=== PATIENT | female | born 1945 | race Caucasian/White ===

== ENCOUNTER 2022-04-16 06:41 | Observation (INO) ==
--- NOTE | 2022-04-06 11:30 | Anesthesiology Consultation ---
Date of Service April 06, 2022 Assessment & Plan (1) Encounter for pre-operative examination: Chart Review Chart Review: Acceptable Risk for Surgery and Patient NOT seen in Pre Admission Testing -COVID screening: Per PAT nursing assessment on 04/06/22. No known COVID-19 positive contacts or current COVID-19 related symptoms. Travel screen negative. Patient is NOT vaccinated for Covid. At surgeon discretion if preop Covid testing being done. History Surgery Operation Date: 04/16/22 07:15 Proposed Procedures p Left Breast Masectomy with Left [place] Acillary Lymph Node Biopsy - Bulmaro Severino MD Height/Weight Height: 5 ft 7.5 in Weight: 58.967 kg Allergies Allergy/AdvReac Type Severity Reaction Status Date / Time Sulfa (Sulfonamide Allergy Mild Rash to Verified 04/06/22 09:50 Antibiotics) Lower Extremities Medications Home Medications Medication Instructions Recorded Confirmed Last Taken acetaminophen 500 mg tablet 500 mg PO Q6H PRN Pain 10/24/20 04/06/22 10/22/20 11:00 (Tylenol Extra Strength) calcium carbonate 600 mg calcium 600 mg PO QDD 10/24/20 04/06/22 10/23/20 (1,500 mg) tablet (Calcium) cinnamon bark 500 mg capsule 500 mg PO QDL 10/24/20 04/06/22 10/23/20 (Cinnamon) multivitamin 1 tab PO QAM 10/24/20 04/06/22 10/23/20 cholecalciferol (vitamin D3) 10 10 mcg PO QDD 04/06/22 04/06/22 Unknown mcg (400 unit) chewable tablet (Vitamin D3) citalopram 10 mg tablet 10 mg PO HS 04/06/22 04/06/22 Unknown Past Medical History Medical History Anxiety Arthritis Borderline high blood pressure Breast cancer left dx Jan 2022 Past Surgical History Surgical History History of breast biopsy left History of colonoscopy Social History Smoking Status: Never smoker Do You Dip or Chew Tobacco: No Hx Alcohol Use: No Hx Substance Use: No substance use type: does not use Testing Laboratory Results 03/30/22= WBC: 7.24 H/H: 13.6/42.0 PLATELETS: 220 SODIUM: 136 POTASSIUM: 4.5 CHLORIDE: 98 CO2: 25 BUN: 17 CREATININE: 0.8 GLUCOSE: 112 Electrocardiogram Date: 03/30/22 SR with PACs at 76bpm Otherwise normal EKG per cardio
[~2022-04-16 06:41] MED LIST: LR 15ML/HR IV SCH; ceFAZolin 2000MG 2,000 MG/15 ML SYR IV SCH
[2022-04-16] MEDS ORDERED: fentaNYL citrate 100 MCG/2 ML VIAL ONE ×2 (09:01→10:28)
[2022-04-16] MEDS ORDERED: PROPOFOL IV EMULSION 10 MG/ML 20 ML VIAL IV ONE ×2 (09:01→10:37)
[2022-04-16] MEDS ORDERED: ONDANSETRON INJ 2 MG/ML 2 ML VIAL ONE ×2 (09:01→10:37)
[2022-04-16] MEDS ORDERED: MIDAZOLAM HCL 1 MG/ML 2ML VIAL ONE (09:01)
[2022-04-16] MEDS ORDERED: DEXAMETHASONE SOD INJ 4 MG/ML VIAL ONE (09:01)
--- NOTE | 2022-04-16 09:22 | History & Physical Bridge Note ---
Date of Service April 16, 2022 History & Physical Bridge Note I have examined the patient, reviewed the History & Physical and in the interval since the performance of the History & Physical I have noted the following changes of clinical significance: no changes noted
[2022-04-16] MEDS ORDERED: BUPIVACAINE LIPOSOME 1.3% 266 MG/20 ML VIAL ONE (09:30)
[2022-04-16] MEDS ORDERED: BUPIVACAINE/EPINEPHRINE 0.5% MPF 1:200,000 30 ML VIAL ONE (09:31)
[2022-04-16] MEDS ORDERED: METHYLENE BLUE 0.5% 10 ML VIAL ONE ×2 (09:31→09:32)
[2022-04-16] MEDS ORDERED: KETOROLAC 30 MG/ML VIAL IV PRN (09:34)
[2022-04-16] MEDS ORDERED: PROMETHAZINE HCL 6.25 MG in SODIUM CHLORIDE 0.9% 50 ML IV PRN (09:34)
[2022-04-16] MEDS ORDERED: fentaNYL citrate 100 MCG/2 ML VIAL IV PRN (09:34)
[2022-04-16] MEDS ORDERED: ATROPINE SULFATE 0.1 MG/ML 10ML SYR IV PRN (09:34)
[2022-04-16] MEDS ORDERED: ONDANSETRON INJ 2 MG/ML 2 ML VIAL IV PRN ×2 (09:34→13:29)
[2022-04-16] MEDS ORDERED: LIDOCAINE 2% MPF LOCAL 5 ML VIAL INFIL ONE (09:56)
[2022-04-16] MEDS ORDERED: PHENYLEPHRINE 100MCG/ML 5ML SYR ONE (09:56)
[2022-04-16] MEDS ORDERED: ePHEDrine sulfate 50 MG/ML SYR ONE (10:13)
--- NOTE | 2022-04-16 10:21 | Nuclear Medicine Report ---
LYMPHOSCINTIGRAPHY CLINICAL HISTORY: Left breast cancer. PROCEDURE: Using standard sterile technique, 4 intradermal and one deep injection of 501.27 uCi of Ly mphoseek was placed in the left breast. The patient tolerated the procedure well. There were no immed iate complications. The patient was subsequently transported to the surgical suite. No imaging was ob tained at the referring physician's request. IMPRESSION: Injection of Lymphoseek in the left breast. ACT 112: Negative or not required by law. Electronically signed by: Jose Weston M.D. 04/16/2022 10:19 AM
[2022-04-16] MEDS ORDERED: KETOROLAC 30 MG/ML VIAL ONE (11:08)
--- NOTE | 2022-04-16 11:54 | Post Operative Brief Note ---
Immediate Post Op Note v1 Date of Surgery April 16, 2022 Pre & Post Diagnosis Operation Date: 04/16/22 09:45 Pre-Op Diagnosis: Infiltrating Lobular Carcinoma in Left Breast Post-Op Diagnosis: Infiltrating Lobular Carcinoma in Left Breast I identified the patient and participated in the time-out.: Yes Procedure Operation Date: 04/16/22 09:45 Actual Procedures p Left Breast Mastectomy with Left [place] Axillary Lymph Node Biopsy(Left) - Bulmaro Severino MD Surgeon Bulmaro Severino MD Poke In GABE Sultana assisted with tissue retraction, camera op, closure Estimated Blood Loss 10 Findings Consistent with Post-Op Diagnosis Drains Francesco-Abarca Drain
--- NOTE | 2022-04-16 11:59 | Operative Report ---
Post Operative Report Pre & Post Diagnosis Operation Date: 04/16/22 09:45 Pre-Op Diagnosis: Infiltrating Lobular Carcinoma in Left Breast Post-Op Diagnosis: Infiltrating Lobular Carcinoma in Left Breast I identified the patient and participated in the time-out.: Yes Procedure Operation Date: 04/16/22 09:45 Actual Procedures p Left Breast Mastectomy with Left [place] Axillary Lymph Node Biopsy(Left) - Bulmaro Severino MD Surgeon Bulmaro Severino MD Hr Payroll Coordinator GABE Sultana assisted with tissue retraction, camera op, closure Estimated Blood Loss 10 Findings Consistent with Post-Op Diagnosis Specimens Left axillary sentinel lymph node #1, hot and blue, 916 count Left axillary sent lymph node #2, hot and blue, 680 count Left breast mastectomy specimen Drains 10 Armenian flat ENA Anesthesia Type General Complications No immediate complications Description of Procedure Patient was taken to the operating room, placed supine on the operating table. A timeout was performed, perioperative antibiotics were administered, SCD boots were placed. After adequate anesthesia and analgesia was obtained, the bilateral chest and left axilla was prepped and draped in the normal sterile fashion. Elliptical incision was drawn onto the left chest wall encompassing the nipple areolar complex. A mix of 20 cc of half percent Marcaine with epinephrine and 20 cc of Exparel was injected into and around the left breast. Incision was made with 15 blade scalpel and carried into the subcutaneous tissue. Flaps were raised. Using a traction countertraction technique, the underlying breast tissue was dissected free from the overlying skin and subcutaneous tissue. This was begun in the left lateral position, dissecting down towards the axilla. Once we reached the axilla, the axillary fat pad was identified and entered. Using the neoprobe, we were able to identify 2 sentinel lymph nodes, which were dissected free circumferentially and removed. The lymphatics were tied with 3-0 silk suture. Both sentinel lymph nodes were hot and blue. The count on sentinel node #1 was 916. The background radiation after both lymph nodes was removed was less than 10% of sentinel node #1. We then continued with the dissection of the breast. The limits of the dissection were the clavicle superiorly, the sternum medially, the rectus sheath inferiorly, and the axillary fat pad laterally. The breast was then removed from the underlying pectoralis major muscle, taking care to remove the fascia with it. It was marked with sutures and ink, and sent off field for specimen. Attention was turned to hemostasis. The wound was copiously irrigated and suctioned free, and hemostasis was attended to and was excellent. A 10 Armenian flat ENA drain was placed through separate stab incision and was secured with nylon suture. The subcutaneous tissue was closed with interrupted 3-0 Vicryl suture. The skin was closed with a running 4 Monocryl subcuticular stitch. Benzoin and Steri-Strips were applied. Dressings were applied. She tolerated the procedure without complication, was transferred in stable condition to the PACU. All instrument, needle, and sponge counts were correct at the end of the case. My mechanic's assistant was necessary throughout the procedure for tissue retraction, possible camera operation, and closure of the wounds. I understand that section 1842(b)(7)(D) of the Social Security act generally p rohibits Medicare physician fee schedule payment for the services of assistants at surgery in teaching hospitals when qualified residents are available to furnish such services. I certify that the services for which payment is claimed were medically necessary and that no qualified resident was available to perform the services. I further understand that these services are subject to postpayment review by the Medicare carrier. I attest to the content of the Intraoperative Record and any orders documented therein. Any exceptions are noted below.
--- NOTE | 2022-04-16 13:05 | Anesthesiology Progress Note ---
Date of Service April 16, 2022 Anesthesia Post Procedure Vital Signs Vital Signs: Temp Pulse Pulse Resp BP Pulse Ox O2 Del Method 04/16/22 13:00 84 12 125/62 93 Room Air 04/16/22 12:50 37.0 C 88 18 128/65 98 Room Air 04/16/22 12:40 89 17 135/66 97 Room Air 04/16/22 12:30 95 H 14 136/73 96 Oxymask 04/16/22 12:20 82 19 128/64 100 Oxymask 04/16/22 12:10 84 12 132/64 100 Oxymask 04/16/22 12:02 36.4 C L 90 16 145/68 H 100 Oxymask 04/16/22 06:54 36.8 C 98 H 20 160/89 H 97 Room Air O2 Flow Rate 04/16/22 13:00 04/16/22 12:50 04/16/22 12:40 04/16/22 12:30 4 04/16/22 12:20 4 04/16/22 12:10 9 04/16/22 12:02 9 04/16/22 06:54 Pain Intensity Left Breast: Pain Intensity: 3 Transfer of Care Handoff Completed per policy Notes Mental Status: alert / awake / arousable Patient Amnestic to Procedure: Yes Nausea / Vomiting: adequately controlled Pain: adequately controlled Airway Patency, RR, SpO2: stable & adequate BP & HR: stable & adequate Hydration State: stable & adequate Anesthetic Complications: no major complications apparent
[2022-04-16] MEDS ORDERED: LACTATED RINGER'S 1,000 ML IV SCH (13:29)
[2022-04-16] MEDS ORDERED: MoRPHine SULFATE 2 MG/ML CARP IV PRN (13:29)
[2022-04-16] MEDS ORDERED: ACETAMINOPHEN 325 MG TAB PO PRN (13:29)
[2022-04-16] MEDS ORDERED: diphenhydrAMINE Capsule 25 MG CAP PO PRN (13:29)
[2022-04-16] MEDS ORDERED: oxyCODONE/ACETAMINOPHEN 5mg/325mg TAB PO PRN (13:29)
[2022-04-16] MEDS ORDERED: PROMETHAZINE HCL 12.5 MG in SODIUM CHLORIDE 0.9% 50 ML IV PRN (13:29)
[2022-04-17] MEDS ORDERED: ENOXAPARIN INJ 30 MG/0.3 ML SYR SQ SCH (07:00)
--- NOTE | 2022-04-17 09:25 | Discharge Summary ---
Date of Service April 17, 2022 Admission HPI Per Admitting Provider Allegra presented to [facility] for elective left breast mastectomy with left sentinel lymph node biopsy by Dr. Severino for left breast infiltrating lobular carcinoma. Principal Diagnosis Left breast infiltrating lobular carcinoma Discharge Exam Constitutional WD/WN, vitals as above cooperative and comfortable; no acute distress and not ill appearing Neck normal visual inspection and trachea midline Respiratory normal respiratory effort; no respiratory distress, no labored breathing and no retractions Chest (Breasts) Additional Comments: The left chest inspected: clean/dry/intact dressing of the left chest without any drainage or edema. Drain with bloody output about 20 cc. Skin no rashes, warm and dry Psychiatric A+Ox3, euthymic affect Discharge Data Allergies Allergy/AdvReac Type Severity Reaction Status Date / Time Sulfa (Sulfonamide Allergy Mild Rash to Verified 04/16/22 07:00 Antibiotics) Lower Extremities Procedures Performed Operation Date: 04/16/22 09:45 Actual Procedures p Left Breast Mastectomy with Left [place] Axillary Lymph Node Biopsy(Left) - Bulmaro Severino MD Ordered Studies 04/16/22 05:00 US - OR guided needle placemen Routine Hospital Course (1) Infiltrating lobular carcinoma of left breast in female: Plan Patient was taken to operating room for left breast mastectomy and left sentinel lymph node biopsy. Patient tolerated procedure well and was transferred to recovery then to medical/surgical floor for postoperative care. Diet advanced to regular diet, activity as tolerated, Pain management as needed and brandi drain to bulb suction. POD # 1 patient evaluated. Afebrile, vss, minimal postop pain just sorness in the left axilla. Has not required any postoperative pain medication. She was discharged home on POD # 1 in stable condition with brandi bragg teaching prior. Total Time Total Time Spent Total Time Spent (In Minutes): 30 minutes Total Time Includes: Examination of the Patient, Discharge Planning and Medication Reconciliation Discharge Plan Discharge Items Patient Disposition: Home - Self-Care Reason For Visit: Infiltrating Lobular Carcinoma in Left Breast Discharge Diagnosis: Infiltrating lobular carcinoma of left breast Activity: Per Instructions section Non-emergency contact: Primary Care Provider and Surgeon Call non-emergency contact if: you have any medication questions, your pain is worsening, your pain is unusual for you, your pain is concerning for you, you have a fever, your temperature is above 101, your wound has increased redness, your wound has increased drainage and your wound pain has increased Follow-up/Referrals: Neva Elizabeth MD [Primary Care Provider] - Diet: Regular Addtl Attending Provider Instructions: MEDICATIONS: Resume previous medications unless instructed otherwise by your surgeon. * Percocet 5/325 mg one tablet every 4 hours as needed for pain. * Ibuprofen 600 mgm every 6 hours as needed for pain. SPECIAL CARE INSTRUCTIONS: * Wear bra day and night until seen in office. * May shower in 24 hours. Let water run over steri strips and pat dry. * Leave steri strips on until seen in office. * Call the surgeon's office with any questions or concerns - (ex. temperature higher than 101 degrees F, excessive bleeding or pain). FOLLOW UP VISIT: If not already scheduled, please call the office for a follow-up appointment for next week at . Pending Studies at Discharge: Yes (pathology , will be reviewed at postop visit) Stand-Alone Forms: My [facility], Smoking Cessation Medications and DC Order Prescriptions: Continued multivitamin Tablet 1 tab PO QAM acetaminophen [Tylenol Extra Strength] 500 mg Tablet 500 mg PO Q6H PRN (Reason: Pain) calcium carbonate [Calcium 600] 600 mg calcium (1,500 mg) Tablet 600 mg PO QDD cinnamon bark [Cinnamon] 500 mg Capsule 500 mg PO QDL citalopram 10 mg Tablet 10 mg PO HS cholecalciferol (vitamin D3) [Vitamin D3] 10 mcg (400 unit) Tablet,Chewable 10 mcg PO QDD Discharge Orders: Discharge Order (Routine); Ordered 04/17/22 Ordered By: Renee Sultana Admission Data Admit Date/Time: 04/16/22 12:04 Attending Provider: Bulmaro Severino Admit Provider: Bulmaro Severino Primary Care Provider: Neva Elizabeth Other Interventions: Discharge Summary Assessment (RN) Last Done: 04/17/22 10:37
== END 2022-04-17 10:38 | disposition home or self-care (01) ==
LOC: 3W 06:41 → ASU 06:41